=== PATIENT | male | born 1945 | race Caucasian/White ===

== ENCOUNTER → 2019-06-07 | Outpatient (CLI) | payer MEDICARE ==
--- NOTE | 2019-06-07 14:10 | Diagnostic Imaging Report ---
EXAM: CT Chest WITHOUT intravenous contrast 06/07/2019 11:38 AM INDICATION: COPD, shortness of breath COMPARISON: None TECHNIQUE: Chest was scanned utilizing a multidetector helical scanner from the lung apex through the level of the adrenal glands without administration of IV contrast. Coronal and sagittal reformations were obtained. Routine protocol was performed. IV CONTRAST: None RADIATION DOSE: Total DLP: 361.9 mGy*cm. Dose modulation, iterative reconstruction, and/or weight based adjustment of the mA/kV was utilized to reduce the radiation dose to as low as reasonably achievable. COMPLICATIONS: None FINDINGS: LINES/ TUBES: None. LUNGS AND AIRWAYS: The central airways are patent. No focal consolidation or pulmonary edema. Mild bilateral centrilobular emphysema. Mild biapical pleural parenchymal thickening/scarring. 12 mm spiculated, partially cavitary nodule at the anterior left lower lobe (series 3 image 54 through 60). PLEURA: The pleural spaces are clear. HEART AND MEDIASTINUM: The thyroid gland is heterogeneous with multiple hypodense nodules measuring up to 10 mm on the right and 11 mm on the left. Mildly enlarged left internal jugular lymph node measures 15 x 14 mm (series 2 image 4). No other supraclavicular, mediastinal, or hilar adenopathy. The heart is not enlarged. No pericardial effusion. Diffuse atherosclerotic calcifications of the coronary arteries, aorta, and proximal great vessels. The main pulmonary artery is not enlarged. UPPER ABDOMEN: Limited noncontrast images of the upper abdomen demonstrate numerous cysts in the liver, the largest in segment 4 measuring up to 7.9 cm. No focal abnormality of the partially visualized spleen, pancreas, adrenals, or upper most kidneys. BONES: The visualized bony thorax is within normal limits. SOFT TISSUES: Unremarkable. IMPRESSION: 12 mm spiculated, partially cavitary nodule at the anterior left lower lobe (series 3 image 54 through 60) may represent focal scar from prior infection/inflammation versus pulmonary malignancy. Recommend short interval follow-up CT in 3 months to assess for stability. Nonspecific enlarged left internal jugular chain lymph node measuring up to 14mm. Diffuse atherosclerotic arterial calcifications, including of the coronary arteries. Signed by: Simone Lou MD on 06/07/2019 2:07 PM
== END ==
LOC: CT 11:23
PROVIDERS: ATTEND Internal Medicine
DX: J44.9 Chronic obstructive pulmonary disease, unspecified (principal)
CPT/HCPCS: 71250

== ENCOUNTER → 2019-06-14 | Outpatient (CLI) | payer MEDICARE ==
--- NOTE | 2019-06-14 14:25 | Diagnostic Imaging Report ---
CT MAXIO FAC/PARANAS WO HISTORY: Chronic cough, left-sided mass COMPARISON: None. TECHNIQUE: Axial CT images through the face were obtained without contrast. Coronal/sagittal reformations were created. One or more of the following dose reduction techniques were used: Automated exposure control, adjustment of the mA and/or kV according to patient size, and/or utilization of iterative reconstruction technique. Streak artifacts obscure some details. DISCUSSION: Partially imaged 2.6 cm soft tissue density mass along the left posterior lateral carotid space may be an enlarged lymph node (left level 2B). The visualized upper aerodigestive tract is otherwise unremarkable. No acute fracture is seen. There are mild to moderate degenerative changes throughout the imaged spine. Small bilateral mandibular alexandro are present. The orbits are intact. Bilateral ocular lens replacement is noted. Intraorbital contents are otherwise grossly unremarkable. The paranasal sinuses are clear. Mild carotid siphon calcifications are present. Otherwise, the visualized intracranial compartment is grossly unremarkable. IMPRESSION: Partially imaged 2.6 cm soft tissue density mass along the left posterior lateral carotid space may be an enlarged lymph node. Further evaluation with contrast-enhanced neck CT is recommended if clinically feasible. Signed by: Dr. Chao Sanchez M.D. on 06/14/2019 2:21 PM
== END ==
LOC: CT 10:05
PROVIDERS: ATTEND Internal Medicine
DX: R05 Cough (principal); R09.82 Postnasal drip; J44.9 Chronic obstructive pulmonary disease, unspecified; I27.0 Primary pulmonary hypertension; Z72.0 Tobacco use
CPT/HCPCS: 70486